=== PATIENT | female | born 1995 | race Caucasian/White ===

== ENCOUNTER 2020-10-16 17:08 | Emergency (ER) | payer OTHER, SELFPAY ==
[2020-10-16] MEDS ORDERED: Ibuprofen 200 MG TAB ONE (17:33)
== END 2020-10-16 17:38 | disposition home or self-care (01) ==
LOC: BURERS 17:08
DX: S16.1XXA Strain of muscle, fascia and tendon at neck level, initial encounter (principal); S13.4XXA Sprain of ligaments of cervical spine, initial encounter; S39.012A Strain of muscle, fascia and tendon of lower back, initial encounter; V43.52XA Car driver injured in collision with other type car in traffic accident, initial encounter
CPT/HCPCS: 99283